=== PATIENT | female | born 1955 | race Caucasian/White ===

== ENCOUNTER → 2020-04-20 17:30 | Outpatient (BNVA) | payer OTHER, SELFPAY | PROVIDERS: Family Provider Family Medicine; Visit Provider Nurse Practitioner | DX: S92.352A Displaced fracture of fifth metatarsal bone, left foot, initial encounter for closed fracture (principal); W01.0XXA Fall on same level from slipping, tripping and stumbling without subsequent striking against object, initial encounter; Y99.0 Civilian activity done for income or pay | CPT/HCPCS: 73630 ==

== ENCOUNTER 2022-07-14 07:02 | Outpatient (CLI) | payer OTHER, SELFPAY ==
--- NOTE | 2022-07-14 07:10 | MM_ITS ---
WS: [id number] Bilateral screening 3D tomosynthesis digital mammogram, 07/14/2022 Clinical Data: SCREENING Comparison: 02/25/2018, 02/04/2018, 06/12/2014, 07/27/2011, 03/11/2010. Findings: The breast parenchymal pattern shows ingenious density. No spiculated masses or clustered calcificati ons are seen. There are no secondary signs of carcinoma. MM/[place] [id number] Impression: 1. Negative bilateral mammogram unchanged. 2. Recommend annual screening mammograms. BIRADS: 1-Negative FOLLOW UP: 1 Year Follow-up The CAD cashier or checker stock clerk was used.
== END 2022-07-14 07:03 | disposition home or self-care (01) ==
LOC: RAD 07:03
PROVIDERS: Visit Provider Registered Nurse
DX: Z12.31 Encounter for screening mammogram for malignant neoplasm of breast (principal)
CPT/HCPCS: 77063; 77067

== ENCOUNTER 2022-12-07 14:48 | Outpatient (CLI) | payer OTHER, MEDICARE, SELFPAY ==
--- NOTE | 2022-12-07 15:03 | XR_ITS ---
WS: [id number] DEXA (DUAL ENERGY X-RAY ABSORPTIOMETRY) Bone mineral density was performed using a [employer] machine. HISTORY: OSTEOPOROSIS COMPARISON: None available. Lumbar spine BMD (L1-L4): 0.834 g/cm2 T score: -2.9 Z score: -0.7 Total hip BMD: Left: 0.650 g/cm2. T score: -2.8 Z score: -1.2 Right: 0.646 g/cm2. T score: -2.9 Z score: -1.2 10 year probability of a major osteoporotic fracture is 36.9%. XR/XR DEXA axial skeleton* 84100 IMPRESSION: OSTEOPOROSIS based upon the WHO classification for females.
== END 2022-12-07 14:49 | disposition home or self-care (01) ==
PROVIDERS: PCP Electrodiagnostic Medicine; Visit Provider Family Medicine
DX: M81.0 Age-related osteoporosis without current pathological fracture (principal)
CPT/HCPCS: 77080

== ENCOUNTER 2023-04-11 14:24 | Outpatient (CLI) | payer OTHER, SELFPAY ==
--- NOTE | 2023-04-11 14:30 | CT_ITS ---
WS: [id number] CT chest wo con [id number] HISTORY: pain, LEFT clavicular pain. TECHNIQUE: Axial imaging performed through the thorax. Coronal and sagittal reformats are submitted. All CT scans at [facility] use at least one of these dose optimization techniques: automated exposure control; mA and/or kV adjustment per patient size (includes targeted exams where dose is mat ched to clinical indication); or iterative reconstruction. CONTRAST: None DLP: 164.09 mGy.cm COMPARISON: No similar studies. Lungs and central airway: Mild pulmonary hyperexpansion. No pulmonary mass or nodule. Benign granulom a RIGHT apex. No pneumonia. Pleura: Normal. No pleural effusion. Heart and pericardium: Normal size heart with no pericardial effusion. Mediastinum and rosangela: No mediastinum or hilar adenopathy. Vessels: Mild atherosclerosis aorta. Normal size pulmonary artery. Chest wall and lower neck: No soft tissue masses. Mild pectus excavatum. Mild degenerative changes in volving the sternoclavicular joints, LEFT greater than RIGHT. Upper abdomen: Normal. Osseous structures: No destructive process. CT/CT chest wo con [id number] IMPRESSION: 1. No pulmonary mass or nodule. 2. No bony destructive process involving the scapula or clavicle. 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
== END 2023-04-11 14:25 | disposition home or self-care (01) ==
PROVIDERS: PCP Electrodiagnostic Medicine; Visit Provider Student in an Organized Health Care Education/Training Program
DX: M19.09 Primary osteoarthritis, other specified site (principal); M25.512 Pain in left shoulder
CPT/HCPCS: 71250

== ENCOUNTER 2023-05-18 14:17 | Outpatient (CLI) | payer OTHER, SELFPAY ==
--- NOTE | 2023-05-18 14:45 | MR_ITS ---
WS: [id number] MRI chest, noncontrast. HISTORY: Medial clavicular pain. COMPARISON: Chest CT 04/11/2023, noncontrast. LEFT clavicle 02/22/2023. Multiplanar, multisequence imaging is performed through the chest wall centered at the region of the sternoclavicular joints. Abnormal signal within the LEFT clavicle centered at the clavicular head. On the T1 sequences there i s low signal throughout a large portion of the proximal clavicle. The T2 and STIR sequences demonstra te increased signal with edema involving at least 2.5 cm of the clavicle. There is a moderate amount of surrounding soft tissue inflammation. There is sternal clavicular joint fluid and increased soft t issue. There is a additional small amount of edema extending into the adjacent sternum. This inflamma tory process appears progressed as compared to the CT from 04/11/2023. On the prior CT there was more sclerosis within the clavicle. On today's examination there is loss of the normal bony cortex. The so ft tissue inflammation extends to the mediastinal fat. Incidental note is made of an aberrant RIGHT subclavian artery. MR/MR chest wo con [id number] Impression: 1. Abnormal signal in the medial LEFT clavicle. Abnormal signal extends into t he sternoclavicular and the sternomanubrial joint. There is a edema within the bone and increased soft tissue. Highly suspicious findings for sternoclavicular joint septic arthritis. Differential includes gout and arthritis. Osteomyeliti s involving a portion of the clavicular head should be considered also. 2. Small amount of inflammation extends to the anterior mediastinum. There is no focal abscess. Notified Gustavo Thomas DO at 05/18/2023 4:24 PM.
== END 2023-05-18 14:18 | disposition home or self-care (01) ==
PROVIDERS: PCP Electrodiagnostic Medicine; Visit Provider Student in an Organized Health Care Education/Training Program
DX: M25.519 Pain in unspecified shoulder (principal); R93.7 Abnormal findings on diagnostic imaging of other parts of musculoskeletal system
CPT/HCPCS: 71550

== ENCOUNTER → 2023-06-12 10:00 | Outpatient (BNVA) | payer OTHER, SELFPAY | PROVIDERS: PCP Electrodiagnostic Medicine; Visit Provider Internal Medicine Rheumatology | DX: Z11.1 Encounter for screening for respiratory tuberculosis (principal); Z79.899 Other long term (current) drug therapy; M86.9 Osteomyelitis, unspecified | CPT/HCPCS: 36415; 85651; 86140; 86480; 87040 ==

== ENCOUNTER → 2023-06-28 12:14 | Outpatient (BNVA) | payer OTHER, SELFPAY | PROVIDERS: PCP Electrodiagnostic Medicine; Visit Provider Student in an Organized Health Care Education/Training Program | DX: R93.89 Abnormal findings on diagnostic imaging of other specified body structures (principal); M87.9 Osteonecrosis, unspecified | CPT/HCPCS: 36415; 70100; 86622 ==

== ENCOUNTER 2023-07-10 08:42 | Day surgery (SDC) | payer OTHER, SELFPAY ==
[2023-07-06 08:09] VITALS: BMI 18.3
--- NOTE | 2023-07-06 08:37 | ANES.PREANE2 ---
Pre-Anesthetic Assessment Height/Weight: Height 1.57 m Weight 45.359 kg Preop Diagnosis: Abnormality left clavicle and left sternoclavicular joint Operation Date: 07/10/23 10:35 Proposed Procedures p sternoclavicular bone biopsy [id number],M25.519(Not Applicable) - Guanakito Phillips MD Familial anesthetic complications: PONV Social No alcohol and No tobacco Exam alert, oriented x 3, clear to auscultation bilaterally and regular rate & rhythm Airway Mallampati: Class I Dentition: full [facility] [place]/skel osteoporosis Anesthetic Plan ASA status: 2 Anesthesia: General Risk of > 500 ml blood loss (7ml/kg in children): No Medications/Allergies Home Medications Medication Instructions Recorded Confirmed Last Taken Type alendronate 70 mg tablet 70 mg PO PER PKG DIR 03/23/23 07/06/23 07/04/23 History aspirin 81 mg chewable tablet 81 mg PO DAILY 03/23/23 07/06/23 07/05/23 History cholecalciferol (vitamin D3) 125 500 mcg PO DAILY 05/22/23 07/06/23 07/05/23 History mcg (5,000 unit) capsule Allergies Allergy/AdvReac Type Severity Reaction Status Date / Time No Known Allergies Allergy Verified 07/06/23 08:06 [facility] Anesthesia Medical History Abnormal MRI Suspicious for left sternoclavicular joint septic arthritis Osteoporosis Surgical History H/O right knee surgery History of hysterectomy with bilateral oophorectomy Family History Other CAD (coronary artery disease) Cancer Diabetes Hypertension Lung disease Denies family history of Chronic kidney disease (CKD) Family history of premature coronary artery disease Stroke Social History Smoking and tobacco status: never smoked 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
[2023-07-06 09:10] LABS: Add Urine Microscopic? NO; Charge for UA Resulting for Rev
[2023-07-06 09:17] LABS: Eosinophils % 0.8 %; Hematocrit 41.7 % (37.0-47.0); Hemoglobin 13.5 g/dL (11.5-15.3); Lymphocytes # 1.5 10^3/uL (0.8-4.8); Lymphocytes % 38.6 %; Mean Corpuscular HGB Conc 32.4 g/dL (30.0-36.0); Mean Corpuscular Hemoglobin 30.5 pg (28.0-34.0); Mean Corpuscular Volume 94.3 fl (81-99); Mean Platelet Volume 10.3 fL (7.4-10.4); Monocytes # 0.3 10^3/uL (0.2-0.9); Monocytes % 7.4 %; Neutrophils # 2.06 10^3/uL (1.8-7.7); Neutrophils % 52.2 %; Nucleated Red Blood Cells % 0 %; Platelet Count 178 10^3/cmm (130-400); Red Blood Count 4.42 10^6/uL (4.1-5.3); Red Cell Distribution Width 12.1 % (12.1-15.1); White Blood Count 3.9 10^3/uL (4.0-10.0)
[2023-07-06 09:19] LABS: Bilirubin Urine Neg (Negative); Blood Urine Neg (Negative); Glucose Urine UA Norm (Normal); Ketones Urine Negative (Negative); Leukocyte Esterase Urine Negative (Negative); Nitrate Urine Negative (Negative); Protein Urine Neg (Negative); Urine Appearance Clear (CLEAR); Urine Color Yellow (Yellow); Urobilinogen Urine Norm (Negative); pH Urine 5 (5-7)
[2023-07-06 09:27] LABS: Anion Gap 13.9 (5-19); Blood Urea Nitrogen 8 mg/dL (8-23); Calcium 8.9 mg/dL (8.5-10.5); Carbon Dioxide 32 mmol/L (22-29); Chloride 100 mmol/L (98-107); Creatinine Clr Calc Pharmacy 53.3503; Glucose 85 mg/dL (65-115); Osmolality Calculated 292 mOsm/kg (285-295); Potassium 3.9 mmol/L (3.5-5.1); Sodium 142 mmol/L (136-145)
[2023-07-10] VITALS (13 sets, daily range): BP systolic 127–157; BP diastolic 64–74; PULSE 61–76; RESP 15–16; TEMP 36.2–36.8; O2SAT 99–100
[2023-07-10] MEDS: scopolamine 1.5 Patch 1 PATCH TRANSDERMA (09:22)
[2023-07-10] MEDS: sodium chloride 0.9% 1,000 ML 30 ML IV (09:23)
--- NOTE | 2023-07-10 09:55 | P.ANESUD_ITS ---
Pre-Anesthetic Update Pre-Anesthetic Assessment: Date of Surgery/Procedure: 07/10/23 Preop Mabel gnosis: Abnormality left clavicle and left sternoclavicular joint Proposed Procedure: Operation Date: 07/10/23 10:35 Proposed Procedures p sternoclavicular bone biopsy [id number],M25.519(Not Applicable) - Guanakito Phillips MD Any changes to Pre-Anesthetic Assessment?: No Last Intake: Intake Last Liquid Date 07/09/23 Last Liquid Time 23:00 Last Solid Date 07/09/23 Last Solid Time 17:30 Labs Last 48hrs: Blood Bank 07/06/23 08:30 Blood Type A Positive Rho(D) Type Positive Antibody Screen Negative Vitals: Temperature 98.2 F 07/10/23 09:01 Temperature Source Temporal Artery S can 07/10/23 09:01 Pulse Rate 61 07/10/23 09:01 Respiratory Rate 16 07/10/23 09:01 Blood Pressure 157/69 07/10/23 09:22 Blood Pressure Tabitha n 98 07/10/23 09:01 Pulse Oximetry 100 07/10/23 09:01 Oxygen Delivery Me thod Room Air 07/10/23 09:09 Exam: Pre-Anes Outpt Exam: alert, oriented x 3, clear to auscultation bilaterally and regular rate & rhythm Cardiac Studies: No Data to Display
--- NOTE | 2023-07-10 10:38 | W.PM.OPSUD ---
Surgery/Procedure H&P Update DATE OF PROCEDURE: July 10, 2023 DATE H&P PERFORMED: 06/28/23 H&P UPDATE INFORMATION: I have reviewed H&P completed within last 30 days, I have examined patient prior to procedure and No changes to prior documentation PREOP DIAGNOSIS: Abnormality left clavicle and left sternoclavicular joint PLANNED PROCEDURE: Operation Date: 07/10/23 10:35 Proposed Procedures p sternoclavicular bone biopsy ,M25.519(Not Applicable) - Guanakito Phillips MD
[2023-07-10] MEDS: ceFAZolin 2,000 MG in sodium chloride 0.9% (plus) 50 ML 100 MG IV (11:12)
[2023-07-10] MEDS: vancomycin 1,000 MG SDV 1000 MG IRRIGATION (11:37)
[2023-07-10] MEDS: lidocaine 1% INJ 10 mL (per mL) 20 ML XX (11:37)
--- NOTE | 2023-07-10 13:23 | P.OP_ITS ---
Operative Report Date of procedure: July 10, 2023 Pre-op diagnosis: Preop Diagnosis Abnormality left clavicle and left sternoclavicular joint Post-op diagnosis: same Procedure done: Resection of left clavicular head Specimens removed/disposition: 1. Left clavicular head for pathologic examination 2. Inflammatory contents of left sternoclavicular joint collected for culture Surgeon: Guanakito Phillips Anesthesia: Other (Laryngeal mask anesthesia) Estimated blood loss (mL): 30 Complications: None Condition: stable Disposition: PACU Brief History: Ms. Rasheed is a 67-year-old female referred to our service due to abnormality of enlargement with swelling of the left clavicular joint. Evaluations included x- ray, CT scan, and MRI which was suggestive of sternoclavicular joint septic arthritis with a differential to include gout and arthritis as well as potential for osteomyelitis involving the clavicular head. He was initially evaluated by Dr. Thomas and referred to our service. I did discuss with her consideration for biopsy of this area and she was in agreement. Details of risk the procedure were carefully and frankly discussed. Appropriate consents have been reviewed and signed. Procedure: Ms. Stafford was taken operating room theater and carefully positioned. Appropriate IVs were confirmed. She underwent laryngeal mask anesthesia. Her entire chest was sterilely prepped and draped. Appropriate timeout was confirmed and completed. I subsequently I infiltrated over the left clavicular head and proximal clavicle with 1% lidocaine. A #10 scalpel blade was utilized to incise through the skin and then utilizing cautery down to the clavicle and clavicular head. Sharp and blunt dissection was then performed circumferentially around the clavicle to allow for passage of a vascular loop. Dissection was continued 1 medially which entered into the sternoclavicular joint where there was evidence of inflammation and disrupted cartilage. Material was collected for culture. Following this we continued dissection very carefully in a circumferential manner. We then transected the proximal clavicular shaft with a oscillating saw. This was carefully elevated to allow for continued sharp and blunt dissection until we had remove the entire medial portion of the clavicle and clavicular head. This specimen was then sent to pathology for permanent sectioning. Following this, the wound was irrigated and hemostasis was confirm ed. Surgicel was placed in the wound bed. The wound was then closed in 2 layers of 2-0 Vicryl suture. This was followed by 3-0 Vicryl suture and then 4- 0 Monocryl suture in a subcuticular manner. Sterile dressing was applied. Ms. Stafford was awakened from laryngeal mask anesthesia and extubated. She had stable vital signs throughout the procedure. Equal breath sounds bilaterally. She was then subsequently taken to the postoperative care unit. I did certified credit counselor with family at completion of the procedure.
[2023-07-10] MEDS: HYDROcodone-acetaminophen 7.5-325 mg Tablet 1 TAB PO (14:22)
--- NOTE | 2023-07-10 15:23 | ANE.PACU2 ---
Inpatient post-anesthesia follow up: Airway intact: Yes Vital signs: Temperature 97.1 F Pulse Rate 62 Respiratory Rate 16 Blood Pressure 137/74 Pulse Oximetry 100 Oxygen Delivery Me thod Room Air Oxygen Flow Rate 6 Fraction of Inspir ed Oxygen Hydration adequate: Yes Nausea and vomiting: No Pain level: 4 Mental status: Baseline
[2023-07-10] MEDS: ketorolac 30 mg/mL INJ IVP (15:49)
--- NOTE | 2023-07-18 09:59 | P.MISC_ITS ---
Miscellaneous Note Purpose of Documentation: Patient updated regarding results of pathology and microbiology.. Findings were personally discussed by me with Dr. North from pathology. There is currently no evidence of osteomyelitis on pathology. Overall her cultures remain negative to date. Mycobacterial cultures are currently pending at [facility], however suspicion is low given serially negative TB screens over many years. Per discussion with pathology overall bone is benign-appearing, there are reactive fibrocartilaginous changes which are typically seen after trauma, though it is a bit unusual because patient has no reported history of trauma at the site. Changes also do not appear to represent osteonecrosis related to bisphosphonates. Overall etiology of her MRI findings remains unclear, however at this point given negative inflammatory markers, negative osteomyelitic changes on path, negative cultures, negative Brucella serologies, highly unlikely to be osteomyelitis or septic sternoclavicular joint. No antibiotics indicated currently. Patient updated, acknowledges understanding
== END 2023-07-10 16:29 | disposition home or self-care (01) ==
PROVIDERS: PCP Electrodiagnostic Medicine; Visit Provider Thoracic Surgery (Cardiothoracic Vascular Surgery)
PROC: (CPT 20240; principal; 2023-07-10 10:25)
DX: M25.512 Pain in left shoulder (principal); M79.89 Other specified soft tissue disorders; M81.0 Age-related osteoporosis without current pathological fracture; Z79.82 Long term (current) use of aspirin; Z79.899 Other long term (current) drug therapy
CPT/HCPCS: 20240; 36415; 80048; 81003; 85025; 86850; 86900; 86920; 87015; 87070; 87081; 87102; 87116; 87176; 87205; 87206; 87801; 88304; J0690; J1100; J1885; J2250; J2405; J2704; J3010; J3370; J3490; J7030

== ENCOUNTER 2024-06-25 08:12 | Outpatient (CLI) | payer OTHER, SELFPAY ==
--- NOTE | 2024-06-25 08:15 | MM_ITS ---
WS: [id number] BILATERAL SCREENING DIGITAL TOMOSYNTHESIS MAMMOGRAM WITH CAD HISTORY: SCREENING COMPARISON: 07/14/2022, 02/25/2018 Bilateral CC and MLO views with tomosynthesis and synthetic mammography submitted. Computer aided det ection analyzed. Breast composition: The breasts are heterogeneously dense, which may obscure small masses. No suspici ous masses, microcalcifications or architectural distortion. Benign breast arterial calcifications. MM/[place] [id number] IMPRESSION: BI-RADS: 2-Benign FOLLOW UP: 1 Year Follow-up
== END 2024-06-25 08:13 | disposition home or self-care (01) ==
LOC: RAD 08:12
PROVIDERS: PCP Electrodiagnostic Medicine; Visit Provider Electrodiagnostic Medicine
DX: Z12.31 Encounter for screening mammogram for malignant neoplasm of breast (principal)
CPT/HCPCS: 77063; 77067

== ENCOUNTER 2024-12-23 14:52 | Outpatient (CLI) | payer MEDICARE, OTHER, SELFPAY ==
--- NOTE | 2024-12-23 15:03 | XR_ITS ---
WS: [email or web address] SCREENING DEXA SCAN [place] CLINICAL INFORMATION: OSTEOPOROSIS COMPARISON: 12/07/2022 FINDINGS: The L1-L4 bone mineral density measures 0.792 g/cm2. This corresponds to a T score score of -3.2 and Z score of -1.0. Left femoral neck bone mineral density measures 0.643 g/cm2. This corresponds to a T score of -2.9 an d Z score of -1.2. Right femoral neck bone mineral density measures 0.619 g/cm2. This corresponds to a T score -3.1of an d Z score of -1.4. Mean femoral neck bone mineral density measures 0.631 g/cm2. This corresponds to a T score of -3.0 an d Z score of -1.3. XR/XR DEXA axial skeleton* [id number] IMPRESSION: Osteoporosis lumbar spine. Osteoporosis femoral necks. Patient's FRAX calculated 10 year probability for major osteoporotic fracture i s 39.7% and osteoporotic hip fracture is 12.4%. Bone mineral density lumbar spine decreased -5.0% Bone mineral density femoral necks decreased -2.6%
== END 2024-12-23 14:53 | disposition home or self-care (01) ==
LOC: RAD 15:00
PROVIDERS: PCP Electrodiagnostic Medicine; Visit Provider Electrodiagnostic Medicine
DX: M81.0 Age-related osteoporosis without current pathological fracture (principal)
CPT/HCPCS: 77080

== ENCOUNTER 2025-04-02 09:50 | Oncology outpatient (recurring) (ONCR) | payer MEDICARE, OTHER, SELFPAY ==
[2025-04-02] MEDS: denosumab 60 mg SDV SUBCUT (10:16)
[2025-04-02 10:20] VITALS: BP 124/76; PULSE 56; TEMP 36.8
== END 2025-04-25 23:59 | disposition home or self-care (01) ==
PROVIDERS: PCP Electrodiagnostic Medicine; Visit Provider Electrodiagnostic Medicine
DX: M81.0 Age-related osteoporosis without current pathological fracture (principal); Z79.899 Other long term (current) drug therapy
CPT/HCPCS: 96372; J0897

== ENCOUNTER 2025-09-07 11:13 | Outpatient (CLI) | payer MEDICARE, OTHER, SELFPAY ==
--- NOTE | 2025-09-07 11:18 | MM_ITS ---
WS: [id number] BILATERAL SCREENING DIGITAL TOMOSYNTHESIS MAMMOGRAM WITH CAD HISTORY: SCREENING COMPARISON: 06/25/2024, 07/14/2022 Bilateral CC and MLO views with tomosynthesis and synthetic mammography submitted. Computer aided detection analyzed. Breast composition: The breasts are heterogeneously dense, which may obscure small masses. No suspicious masses, microcalcifications or architectural distortion. Arterial calcifications in each breast. MM/MM scr BI tomosynthesis [id number] IMPRESSION: BI-RADS: 2 - Benign FOLLOW UP: 1 Year Follow-up
== END 2025-09-07 11:14 | disposition home or self-care (01) ==
LOC: RAD 11:15
PROVIDERS: PCP Electrodiagnostic Medicine; Visit Provider Electrodiagnostic Medicine
DX: Z12.31 Encounter for screening mammogram for malignant neoplasm of breast (principal); R92.333 Mammographic heterogeneous density, bilateral breasts; R92.1 Mammographic calcification found on diagnostic imaging of breast
CPT/HCPCS: 77063; 77067

== ENCOUNTER → 2025-09-15 07:57 | Outpatient (BNVA) | payer MEDICARE, OTHER, SELFPAY | PROVIDERS: PCP Electrodiagnostic Medicine; Visit Provider Podiatrist Foot & Ankle Surgery | DX: M20.12 Hallux valgus (acquired), left foot (principal); M79.672 Pain in left foot; M79.671 Pain in right foot | CPT/HCPCS: 73620; 73630; 99204 ==

== ENCOUNTER 2025-09-28 08:16 | Day surgery (SDC) | payer MEDICARE, OTHER, SELFPAY ==
[2025-09-28] VITALS (7 sets, daily range): BP systolic 130–144; BP diastolic 65–92; PULSE 54–61; RESP 10–20; TEMP 36.2–37; O2SAT 98–100; BMI 17.7
--- NOTE | 2025-09-28 | XR_ITS ---
WS: [id number] Left foot, C-arm fluoroscopy views, 09/28/2025 Clinical Data: Left foot first metatarsal phalangeal joint arthrodesis Comparison: Left foot, 09/15/2025 Findings: Dr. Bull performed an arthrodesis of the left first MTP joint. XR/XR foot LT 2V [id number] Impression: Arthrodesis of left first MTP joint.
--- NOTE | 2025-09-28 09:03 | W.PM.OPSUD ---
Surgery/Procedure H&P Update DATE OF PROCEDURE: September 28, 2025 DATE H&P PERFORMED: 09/15/25 H&P UPDATE INFORMATION: I have reviewed H&P completed within last 30 days, I have examined patient prior to procedure, No changes to prior documentation, H&P is in [facility] EMR on date indicated and Risks and benefits of the procedure reviewed PREOP DIAGNOSIS: Left foot hallux valgus PLANNED PROCEDURE: Operation Date: 09/28/25 09:55 Proposed Procedures p Metatarsophalangeal Joint Arthroplasty(Left) - Mike Bull DPM s metatarsal closing wedge osteotomy(Left) - Mike Bull DPM
--- NOTE | 2025-09-28 09:18 | ANES.PREANE2 ---
Pre-Anesthetic Assessment Height/Weight: Height 5 ft 2 in Weight 97 lb Temp Pulse Resp BP Pulse Ox O2 Del Method 98.6 F 61 18 132/65 98 Room Air 09/28/25 08:54 09/28/25 08:54 09/28/25 08:54 09/28/25 08:54 09/28/25 08:54 09/28/25 08:58 Preop Diagnosis: Left foot hallux valgus Operation Date: 09/28/25 09:55 Proposed Procedures p Metatarsophalangeal Joint Arthroplasty(Left) - Mike Bull DPM s metatarsal closing wedge osteotomy(Left) - Mike Bull DPM Was Beta Archana taken within 24 hours: N/A Was Clonidine taken within 24 hours: N/A Last intake: Intake Last Liquid Date 09/27/25 Last Liquid Time 20:00 Last Solid Date 09/27/25 Last Solid Time 18:00 Social No alcohol and No tobacco Exam alert, oriented x 3, clear to auscultation bilaterally and regular rate & rhythm Airway Submandibular: within normal limits Cervical ROM: within normal limits Mallampati: Class I Dentition: full Anesthetic Plan ASA status: 2 Anesthesia: MAC Other: History of PONV after knee surgery and hysterectomy NPO since yesterday evening Denies any cardiac or pulmonary issues Very active individual Plan for MAC anesthesia with local via surgeon Medications/Allergies Home Medications ?Medication ?Instructions ?Recorded ?Confirmed ?Last Taken ?Type aspirin 81 mg chewable tablet 81 mg PO DAILY 03/23/23 09/24/25 09/21/25 History cholecalciferol (vitamin D3) 125 500 mcg PO DAILY 05/22/23 09/24/25 09/23/25 History mcg (5,000 unit) capsule calcium 500 mg tablet 1,000 mg PO DAILY 09/24/25 09/24/25 09/23/25 History Knee Scooter #1 ea 09/28/25 Unknown Rx hydrocodone 5 mg-acetaminophen 325 1 tab PO Q6H PRN pain #28 tabs 09/28/25 Unknown Rx mg tablet Allergies Allergy/AdvReac Type Severity Reaction Status Date / Time No Known Allergies Allergy Verified 09/24/25 10:13 FORMERLY [facility] Anesthesia Medical History (Updated 09/16/25 @ 06:15 by Mike Bull DPM) Abnormal MRI Suspicious for left sternoclavicular joint septic arthritis Osteoporosis Surgical History History of hysterectomy with bilateral oophorectomy H/O right knee surgery Family History Other CAD (coronary artery disease) Cancer Diabetes Hypertension Lung disease Denies family history of Chronic kidney disease (CKD) Family history of premature coronary artery disease Stroke Social History Smoking and tobacco/nicotine status: never used tobacco/nicotine 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
[2025-09-28] MEDS: ceFAZolin 2,000 mg SDV 2000 MG IVP (09:36)
[2025-09-28] MEDS: BUPivacaine 0.5% INJ 30 mL XX (09:58)
--- NOTE | 2025-09-28 10:44 | P.OP_ITS ---
Operative Report Date of procedure: September 28, 2025 Surgeon: Mike Bull DPM Procedure: Date of procedure: 09/28/2025 Pre-op diagnosis: Left foot hallux valgus Post-op diagnosis: Same Post-op findings: Hallux valgus left foot Procedure done: Left foot first metatarsal phalangeal joint arthrodesis CPT 75198 Implants: First metatarsal phalangeal joint arthrodesis plate [place] Specimens removed: None Surgeon: Dr. Mike Bull DPM Invertebrate Paleontologist: Vern Estimated blood loss: 5 cc Tourniquet time: 48 minutes Complications: None Patient is a 69-year-old female that has a history of left hallux valgus. The patient has had the aforementioned chief complaint for some time. Conservative treatment measures have been attempted and the patient has opted for surgical intervention at this time. A lengthy discussion regarding the procedure, including risks and complications has been had with the patient and is noted in the recent clinic note. Written and verbal consent have been obtained. All patient questions have been answered to the patient?s satisfaction. No written or verbal guarantees have been given or implied. The patient has been NPO since midnight. The history has been reviewed and the history and physical is current. The signed consent was confirmed and placed in the patient chart. Patient imaging has been reviewed and is consistent with the diagnosis. Under mild sedation, the patient was brought into the operating room and placed on the table in the supine position. IV antibiotics were given by the anesthesia team as preoperative surgical prophylaxis. MAC sedation was then performed by the anesthesiateam. Local field block was performed using 0.5% Marcaine plain. A pneumatic tourniquet was then placed about the left ankle. The operative extremity was then prepped and draped in the usual fashion. The extremity was then elevated and exsanguinated before the tourniquet was inflated to 250 mmHg. After inflation, the following procedure was then performed. Attention was directed to the left first metatarsophalangeal joint where a 4.5 cm incision was made dorsally using a #15 blade. Dissection was carried down through subcutaneous and superficial fascia to the level of the first metatarsophalangeal joint capsule. Any bleeders were cauterized as necessary using electrocautery. Care was taken to preserve the extensor hallucis longus tendon as well as the medial neurovascular bundle. #15 blade was used to incise the first metatarsophalangeal joint thus exposing the underlying first metatarsal phalangeal joint. Dissection was further carried out using a #15 blade to expose the entirety of the first metatarsophalangeal joint and the head of the first metatarsal. There was noted to be erosive changes in the head of the first metatarsal consistent with arthritis. There is also noted to be periarticular spurring. Using a sagittal bone saw the osteophytes at the first metatarsal head were removed and passed from the operative field. Next a 0.062 K wire was driven into the head of the first metatarsal centrally before a concave reamer was placed over the wire and used to ream the first metatarsal head. After reaming, all articular cartilage from the head of the first metatar jennifer was noted to be removed duration for arthrodesis. Next a 0.062 K wire was removed and driven into the base the proximal phalanx centrally. A corresponding convex reamer was used to remove the articular cartilage from the base the proximal phalanx preparation for arthrodesis. Next the site was irrigated with copious muscle sterile saline before K wire was used to fenestrate the head of first metatarsal base the proximal phalanx. The hallux was then positioned into the appropriate position clinically as well as radiographically which was confirmed on C-arm fluoroscopy. The dorsal first metatarsophalangeal joint plate from [place] was then positioned into the appropriate position and temporarily fixated using olive wires. Good positioning of the plate was noted clinically as well as on C-arm imaging. Final C arm images were obtained to confirm the positioning of the plate and screws, they were noted to be in the appropriate position. Site was irrigated with sterile saline and attention was directed to closure. Deep tissue including capsule was closed with 3-0 Vicryl followed by subcuticular closure with 4-0 Vicryl and skin closure with 4-0 nylon The patient tolerated the procedure and anesthesia well and without complication. The patient was transported from the operating room to the recovery room with vital signs stable and vascular status intact to all digits of the left foot. The patient was given both written and verbal instructions to remain nonweightbearing to the operative extremity, to keep dressings/splint clean, dry and intact and to take pain medication as directed. The patient will follow-up in the outpatient setting at their scheduled appointment. The patient was discharged with my personal number and was instructed to call if any questions or issues should arise. They were discharged home once anesthesia criteria was met.
--- NOTE | 2025-09-28 10:44 | W.PM.BPON ---
Date of procedure: 09/28/2025 Surgeon name: Mile AyersPHanh Linderman Machine Operator(s) name(s): Vern Procedure(s) performed: Left foot first metatarsal phalangeal joint arthrodesis Description of findings: Left foot hallux valgus Estimated blood loss: 5 cc Tourniquet time: 48 minutes Specimen(s) removed: None Post-operative diagnosis: Left hallux valgus
--- NOTE | 2025-09-28 12:00 | ANE.PACU2 ---
Inpatient post-anesthesia follow up: Airway intact: Yes Vital signs: Temperature 97.1 F Pulse Rate 55 Respiratory Rate 17 Blood Pressure 144/92 Pulse Oximetry 99 Oxygen Delivery Me thod Room Air Oxygen Flow Rate Fraction of Inspir ed Oxygen Hydration adequate: Yes Nausea and vomiting: No Pain level: 1 Mental status: Baseline
== END 2025-09-28 12:10 | disposition home or self-care (01) ==
PROVIDERS: PCP Electrodiagnostic Medicine; Visit Provider Podiatrist Foot & Ankle Surgery
PROC: (CPT 28750; principal; 2025-09-28 09:45)
PROC: (CPT 28750; 2025-09-28 09:45)
DX: M20.12 Hallux valgus (acquired), left foot (principal); Z79.82 Long term (current) use of aspirin
CPT/HCPCS: 28750; 73620; 76000; C1713 ×2; J0690; J2704; J3010; J3490; J7030; J9999

== ENCOUNTER 2025-09-29 08:48 | Oncology outpatient (recurring) (ONCR) | payer MEDICARE, OTHER, SELFPAY ==
[2025-09-29 09:06] VITALS: BP 124/76; PULSE 75; TEMP 36.3; O2SAT 95
[2025-09-29] MEDS: denosumab 60 mg SDV (Infusion Clinic Only) SUBCUT (09:14)
== END 2025-10-25 23:59 | disposition home or self-care (01) ==
PROVIDERS: PCP Electrodiagnostic Medicine; Visit Provider Electrodiagnostic Medicine
DX: M81.0 Age-related osteoporosis without current pathological fracture (principal); Z79.899 Other long term (current) drug therapy
CPT/HCPCS: 96372; J0897

== ENCOUNTER → 2025-10-12 15:36 | Outpatient (BNVA) | payer MEDICARE, OTHER, SELFPAY | PROVIDERS: PCP Electrodiagnostic Medicine; Visit Provider Podiatrist Foot & Ankle Surgery | DX: Z98.890 Other specified postprocedural states (principal); M20.12 Hallux valgus (acquired), left foot; M79.672 Pain in left foot | CPT/HCPCS: 73630; 99024 ==

== ENCOUNTER 2025-10-26 14:50 | Outpatient (CLI) | payer MEDICARE, OTHER, SELFPAY | END 2025-10-26 14:51 | disposition home or self-care (01) | PROVIDERS: PCP Electrodiagnostic Medicine; Visit Provider Podiatrist Foot & Ankle Surgery | DX: M81.0 Age-related osteoporosis without current pathological fracture (principal); Z79.899 Other long term (current) drug therapy; M20.12 Hallux valgus (acquired), left foot; M79.672 Pain in left foot | CPT/HCPCS: 73630; 99024 ==

== ENCOUNTER → 2025-11-09 13:06 | Outpatient (BNVA) | payer MEDICARE, OTHER, SELFPAY | PROVIDERS: PCP Electrodiagnostic Medicine; Visit Provider Podiatrist Foot & Ankle Surgery | DX: M79.672 Pain in left foot (principal); M20.12 Hallux valgus (acquired), left foot | CPT/HCPCS: 73630; 99024 ==

== ENCOUNTER → 2025-11-23 15:23 | Outpatient (BNVA) | payer MEDICARE, OTHER, SELFPAY | PROVIDERS: PCP Electrodiagnostic Medicine; Visit Provider Podiatrist Foot & Ankle Surgery | DX: Z98.890 Other specified postprocedural states (principal); M20.12 Hallux valgus (acquired), left foot; M79.672 Pain in left foot | CPT/HCPCS: 73630; 99024 ==